=== PATIENT | female | born 1970 | race Caucasian/White ===

== ENCOUNTER 2017-11-15 21:01 | Emergency (ER) | payer OTHER, SELFPAY ==
[2017-11-15 21:03] VITALS: BP 154/99; PULSE 95; RESP 18; TEMP 36.8; O2SAT 96; BMI 48.9
--- NOTE | 2017-11-15 22:45 | RAD_ITS ---
STUDY: X-RAY - LEFT KNEE REASON FOR EXAM: Female, 47 years old. Pain TECHNIQUE: 4 view(s) of the knee. COMPARISON: None. FINDINGS: There is no evidence of fracture or dislocation. There are no significant degenerative changes. There are no radiodense foreign bodies. RAD/Knee 4 or More Views IMPRESSION: No fracture or dislocation. Electronically Signed: Ramakrishna Jones, at 23:03 EDT Tel , Service support ,
--- NOTE | 2017-11-16 00:05 | ED.VISSUMM ---
- ER Visit Summary Date of Service: 11/16/17 Chief Complaint: Knee pain History of Present Illness: The patient is a 47 F presenting for evaluation secondary knee pain. Patient states that over the course the last 2 days, she has had progressively worsening left knee pain. She denies that there is any presence of injury associated with this. She states it does feel as if there is swelling behind her knee, pain is sharp and worse with movement and ambulation and palpation. She denies any numbness or weakness. She denies any DVT or PE risk factors, she denies any chest pain or shortness of breath, she denies any exogenous hormone use. Review of systems otherwise negative. Physical Examination: Lower extremity exam shows tenderness palpation in the posterior joint line as well as the lateral joint line of the left knee. Limited range of motion secondary to pain, but normal passive range of motion. No significant joint effusion, but I do believe I was able to palpate a Ling cyst. Normal distal pulses. Normal distal sensation. Test Results: X-ray of the knee shows no radiographic abnormality. Bedside ultrasound shows a Ling's cyst and a normal popliteal vein Emergency Department Course and Treatment: Patient presented secondary to knee pain. Workup seems consistent with a Ling's cyst. Patient will be provided with an Francois wrap and NSAIDs. She will be given referral to orthopedics as needed. Disposition: Discharge Impression: 1. Ling's cyst, left knee This note was generated with [employer] dictation software. It may contain incorrect words, spelling, and punctuation that were not noted in review of the chart prior to signing ED Disposition - Plan for ED Patient: Disposition: Home or Assisted Living Chief Complaint: Lower Extremity Injury Diagnosis: Ling cyst Instructions: ED Cyst Ling Prescriptions: Naproxen [Naprosyn] 500 mg PO BID PRN #20 tab Referrals: Ramakrishna Royal MD [STAFF PHYSICIAN] - 1-2 Weeks
[2017-11-16 00:20] VITALS: RESP 18
== END 2017-11-16 00:21 | disposition home or self-care (01) ==
PROVIDERS: Emergency Provider Emergency Medicine; Family Provider Family Medicine; PCP Family Medicine
DX: M71.22 Synovial cyst of popliteal space [Baker], left knee (principal); I10 Essential (primary) hypertension; Z98.51 Tubal ligation status; Z79.899 Other long term (current) drug therapy
CPT/HCPCS: 73564; 99282

== ENCOUNTER → 2018-09-13 16:33 | Outpatient (CLI) | payer OTHER, SELFPAY ==
--- NOTE | 2018-09-13 16:55 | RAD_ITS ---
STUDY: X-RAY - LUMBAR SPINE REASON FOR EXAM: Female, 48 years old. Back pain for one year. No history of trauma. TECHNIQUE: 3 view(s) of the lumbar spine were obtained. COMPARISON: MRI lumbar spine May 06, 2017. FINDINGS: Normal lumbar lordosis. There is no substantial scoliosis. There is a normal alignment of the vertebrae. Normal vertebral bodies. Mild multilevel marginal osteophytes. Normal disc space heights. The soft tissue structures are unremarkable. RAD/Lumbar Spine 2 or 3 Views IMPRESSION: Mild degenerative changes of the lumbar spine. No fracture identified. Electronically Signed: Kirk Lopez MD at 5:09 EST , Service support ,
== END ==
PROVIDERS: Family Provider Family Medicine; PCP Family Medicine; Referring Provider Anesthesiology Pain Medicine; Visit Provider Anesthesiology Pain Medicine
DX: M54.9 Dorsalgia, unspecified (principal)
CPT/HCPCS: 72100

== ENCOUNTER 2018-10-29 18:30 | Emergency (ER) | payer OTHER, SELFPAY ==
[2018-10-29 18:31] VITALS: BP 136/87; PULSE 86; RESP 16; TEMP 36.6; O2SAT 96; BMI 41.6
[2018-10-29] MEDS: Ketorolac 30 MG/ML Syringe IM (20:16)
[2018-10-29] MEDS: morphine 8 MG/ML Syringe 6 MG IM (20:18)
--- NOTE | 2018-10-29 20:22 | ED.VIS.BACK ---
History of Present Illness Chief Complaint: Back Informant: Patient Onset: Days Context: Sudden Onset Injury: - - Patient relates no history of injury. Timing: Continuous Quality: Sharp, Aching Location: Lumbar Current Severity: Mild Maximum Severity: Severe Worsened by: improves with: Movement, Ambulation, Bending, Lifting. worse with: Night time pain Relieved by: Nothing Associated Symptoms: - - Please read narrative Narrative: Patient denies bowel or bladder dysfunction. Denies saddle paresthesia or anesthesia. She denies radicular pain. She denies foot drop. She denies weakness thigh muscles going up or down steps. She does report lumbar pain right side and centrally. Prior similar symptoms: Yes Recent Illness/Hospitalization: Yes - Recently injected by Dr. Acevedo Past Medical History - Allergies and Home Meds Allergies/Adverse Reactions: Allergies No Known Allergies Allergy (Verified 10/29/18 18:31) Primary Care Physician: Junior Nicole MD [Primary Care Provider] - Prior records reviewed: Yes Past Medical History: - - Hypertension, depression and chronic back pain Surgical History: noncontributory Lives: Spouse/ Significant Other Smoking Status: Never smoker Alcohol: None Drugs: None Review of Systems General: Denies: Chills, Fever, Malaise, Subjective, Sweats, Weight loss Cardiovascular: Denies: Chest pain, Palpitations Respiratory: Denies: Dyspnea, Cough, Dyspnea on exertion, Orthopnea, Paroxysmal nocturnal dyspnea Gastrointestinal: Reports: Abdominal pain. Denies: Nausea, Vomiting, Diarrhea Genitourinary: Denies: Dysuria, Hematuria, Frequency Musculoskeletal: Reports: Back pain. Denies: Myalgias, Arthralgias, Neck pain, Swelling, Extremity Pain Skin: Denies: Rash Neurological: Denies: Headache, Weakness, Parasthesia, Numbness Psych: Reports: Depression Allergy: Denies: Uticaria, Swelling of the mouth Physical Exam Vital Signs/Narrative: Vital Signs Temp Pulse Resp BP Pulse Ox 10/29/18 18:31 97.8 F 86 16 136/87 H 96 Inital Vital Signs reviewed: Yes General: Well nourished, Well developed, Obese Head: Normocephalic, Atraumatic Eyes: Perrl, EOMI. Negative for: Pale conjunctiva, Scleral icterus, - ENT: Moist mucous membranes, No rhinorrhea Neck: Supple, Nontender Cardiovascular: Regular rate, Regular rhythm, No murmurs, Normal S1, Normal S2 Respiratory: No distress, CTA bilaterally, Chest nontender Abdomen: Soft, Nontender, Nondistended, Normal bowel sounds, No masses Back: Normal Inspection, Negative SLR - Right, Negative SLR - Left, - - Negative crossover test. Negative for: Nontender, Spinal tenderness Extremeties: Nontender - I just finally caught up sorry Rosa, No edema, Strong Pulses, Symmetric, Asymmetric Skin: No rash Neuro: Alert, Oriented, Normal Strength, Normal Sensation, Normal DTR, Normal Gait, Normal Reflexes - Patella and ankle reflex are 2+ and symmetric. There is no clonus or Babinski sign noted. Gait was observed. There is no foot drop. She is able to walk on heels and toes. She is able to do a 1 legged squat both right and left leg. Reflexes: Right Patellar, Right Achilles, Left Patellar, Left Achilles, - - Reflexes are 2+. Negative for: Right Clonus, Right Babinski, Left Clonus, Left Babinski Psychological: Depressed, Tearful Diagnostic/Tx/Re-eval - Medical Decision Making Patient's exam is consistent with low back muscle skeletal pain. There is no evidence of radicular pain or cauda equina. Patient was medicated with Toradol and morphine. She was informed that she would not be discharged home with pain medicine since she is in a pain management program and that would violate her contract with Dr. Acevedo. She states her is able to pick her up from the emergency department. Patient's pain improved with parenteral medication. She will be discharged to home. ED Disposition - Plan for ED Patient: Disposition: Home or Assisted Living Diagnosis: Right-sided low back pain without sciatica Instructions: ED Neck Back Pain General Referrals: Junior Nicole MD [Primary Care Provider] - As Needed Additional Instructions: Keep your your appointment with Dr. Banuelos for this coming week.
[2018-10-29 21:32] VITALS: BP 150/91; PULSE 60; RESP 16; O2SAT 97
== END 2018-10-29 21:33 | disposition home or self-care (01) ==
PROVIDERS: Emergency Provider Emergency Medicine; Family Provider Family Medicine; PCP Family Medicine
DX: M54.5 Low back pain (principal); R10.9 Unspecified abdominal pain; I10 Essential (primary) hypertension; M54.9 Dorsalgia, unspecified; G89.29 Other chronic pain; E66.9 Obesity, unspecified; F32.9 Major depressive disorder, single episode, unspecified; Z79.899 Other long term (current) drug therapy
CPT/HCPCS: 96372; 99282

== ENCOUNTER 2019-07-22 15:20 | Emergency (ER) | payer OTHER, SELFPAY ==
[2019-07-22 15:21] VITALS: BP 187/106; PULSE 97; RESP 15; TEMP 36; O2SAT 98; BMI 48.7
--- NOTE | 2019-07-22 15:50 | ED.VIS.GEN ---
History of Present Illness Chief Complaint: Upper Extremity Injury Detail of Chief Complaint: Left shoulder pain Informant: Patient Onset: Days - 3 to 4 days Context: - - Other abrupt onset Current Severity: Moderate Maximum Severity: Moderate Narrative: She presents with pain to her left shoulder. It started couple days ago rather abruptly. She denies any specific injury. She states she was using a back and neck massager. She did have prior surgery on her left shoulder where she reports they removed part of her clavicle. This was approximately 7 years ago. She denies paresthesias. She is right-hand dominant. - Past Medical History (1) Hypertension Status: Chronic (2) Anxiety Status: Chronic (3) Depression Status: Chronic Past Medical History - Allergies and Home Meds Allergies/Adverse Reactions: Allergies No Known Allergies Allergy (Verified 07/22/19 15:21) Primary Care Physician: Junior Nicole MD [Primary Care Provider] - Prior records reviewed: Yes Surgical History: noncontributory Lives: With Family Smoking Status: Never smoker Review of Systems General: Denies: Chills, Fever Eyes: Denies: Visual changes - bilaterally ENT: Denies: Bilateral ear pain Cardiovascular: Denies: Chest pain Respiratory: Denies: Dyspnea, Cough Gastrointestinal: Denies: Abdominal pain Genitourinary: Denies: Dysuria Musculoskeletal: Reports: Back pain, Extremity Pain. Denies: Swelling Skin: Denies: Rash Neurological: Denies: Headache, Weakness, Parasthesia Allergy: Denies: Uticaria Physical Exam Vital Signs/Narrative: Vital Signs Temp Pulse Resp BP Pulse Ox 07/22/19 15:21 96.8 F L 97 15 187/106 H 98 Inital Vital Signs reviewed: Yes General: Well nourished, Well developed Head: Normocephalic ENT: Moist mucous membranes Neck: Supple Cardiovascular: Regular rate, Regular rhythm Respiratory: No distress, CTA bilaterally Abdomen: Soft, Nontender Extremities: - - Diffuse muscular tenderness palpation around the humeral head and over the scapula. No deformity noted. Strong hand grasp with good cap refill distally. Neurological: Alert, Oriented x3 Psychological: - - Anxious Diagnostic/Tx/Re-eval Impressions Shoulder X-Ray 07/22/19 15:55 IMPRESSION: Distal clavicular bony resorption. Differential considerations include rheumatoid arthritis or scleroderma, posttraumatic osteolysis, osteomyelitis or hyperparathyroidism. Electronically Signed: Jaime Verma MD ([place]) at 16:10 EST , Service support , 07/22/19 15:55 Shoulder min 2 Views [RAD] Stat - Medical Decision Making Patient was given [place] here for pain. On repeat evaluation she is resting comfortably. She does still have significant spasm in the trapezius muscles. She will be given restrictions for [place] and Flexeril. She will follow-up with her doctor next week. ED Disposition - Plan for ED Patient: Disposition: Home or Assisted Living Diagnosis: Shoulder sprain, Muscle spasm Instructions: Shoulder Sprain, Muscle Spasm Prescriptions: cycloBENZAPRine HCl [Flexeril] 10 mg PO TID PRN #20 tab PRN Reason: Muscle Spasm Transmission Status: Pending to [facility] Hydrocodone Bitart/Apap 5-325 [[place] 5MG-325MG] 1 tablet PO Q6H PRN PRN 3 Days #10 tablet PRN Reason: Pain Transmission Status: Sent to [facility] Referrals: Junior Nicole MD [Primary Care Provider] - 5-7 Days
[2019-07-22] MEDS: HYDROcodone Bitartrate/Apap 5/325 Tablet PO (15:52)
--- NOTE | 2019-07-22 15:55 | RAD_ITS ---
STUDY: X-RAY - LEFT SHOULDER REASON FOR EXAM: Female, 49 years old. LEFT SHOULDER PAIN TECHNIQUE: Left shoulder pain view(s) of the shoulder. COMPARISON: Chest x-ray of 01/05/2011 FINDINGS: Normal glenohumeral articulation. There has been interval osteolysis of the distal left clavicle since 2010. Normal acromion. Normal humeral head and visualized proximal humerus. The soft tissue structures are unremarkable. Normal visualized pulmonary apex. RAD/Shoulder min 2 Views IMPRESSION: Distal clavicular bony resorption. Differential considerations include rheumatoid arthritis or scleroderma, posttraumatic osteolysis, osteomyelitis or hyperparathyroidism. Electronically Signed: Jaime Verma MD ([place]) at 16:10 EST , Service support ,
[2019-07-22 18:22] VITALS: BP 155/85; PULSE 87; RESP 18; O2SAT 96
== END 2019-07-22 18:23 | disposition home or self-care (01) ==
PROVIDERS: Emergency Provider Emergency Medicine; Family Provider Family Medicine; PCP Family Medicine
DX: M62.838 Other muscle spasm (principal); S43.402A Unspecified sprain of left shoulder joint, initial encounter; X58.XXXA Exposure to other specified factors, initial encounter; Y93.9 Activity, unspecified; Y92.9 Unspecified place or not applicable; Y99.9 Unspecified external cause status; I10 Essential (primary) hypertension; F32.9 Major depressive disorder, single episode, unspecified; F41.9 Anxiety disorder, unspecified; Z79.899 Other long term (current) drug therapy
CPT/HCPCS: 73030; 99283

== ENCOUNTER 2020-04-14 16:21 | Emergency (ER) | payer OTHER, SELFPAY ==
[2020-04-14 16:22] VITALS: BP 134/84; PULSE 94; RESP 17; TEMP 36.3; O2SAT 97; BMI 50.7
--- NOTE | 2020-04-14 16:38 | ED.VISSUMM ---
- ER Visit Summary Date of Service: 04/14/20 Chief Complaint: [Swelling of the right arm ] History of Present Illness: The patient is a 50 F [presents to the emergency department with swelling of the right arm that started yesterday. Patient denies any trauma. She denies recent travel or surgery. No history of PE or DVT. She denies any chest pain or shortness of breath. She denies any fever.] Patient has history of hypertension. Physical Examination: [HEENT-PERRLA, EOMI. Cranial nerves II through XII grossly intact. TMs clear. Mucous membranes moist. No adenopathy. Cardiovascular-regular rate and rhythm without murmur or ectopy Lungs-clear to auscultation, chest wall stable without crepitus or subcu emphysema Abdomen-normoactive bowel sounds, soft, nontender, no rebound or rigidity, no peritoneal signs. Extremities-intact ?4, normal range of motion, normal pulses, atraumatic. Right arm-patient has some mild soft tissue swelling and fullness over the medial aspect of the right antecubital arm. Incidentally she is noticed to have some engorgement of the veins of the right upper arm. There is no erythema or warmth noted. She is neurovascular intact distally without significant edema distally.] Test Results: [Venous duplex not available this evening.] Emergency Department Course and Treatment: [She was given a dose of Xarelto 15 mg p.o. She will be given a prescription to have an ultrasound done tomorrow of the arm. I suspect she may have DVT versus superficial phlebitis versus possibly a lipoma.] Treatment Plan: [Patient will be given 1 dose of Xarelto and a prescription for ultrasound of the right arm tomorrow] Disposition: [Discharged home in stable condition] Impression: [Right arm swelling-rule out DVT] This note was generated with [employer] dictation software. It may contain incorrect words, spelling, and punctuation that were not noted in review of the chart prior to signing ED Disposition - Plan for ED Patient: Referrals: Junior Nicole MD [Primary Care Provider] -
--- NOTE | 2020-04-14 16:41 | ED.DEP ---
ED Disposition - Plan for ED Patient: Instructions: ED DVT Referrals: Junior Nicole MD [Primary Care Provider] - 3-5 Days
[2020-04-14] MEDS: Rivaroxaban 15 MG Tablet PO (16:52)
== END 2020-04-14 16:57 | disposition home or self-care (01) ==
LOC: ED 16:49
PROVIDERS: Emergency Provider Emergency Medicine; PCP Family Medicine
DX: M79.89 Other specified soft tissue disorders (principal); I10 Essential (primary) hypertension; Z79.899 Other long term (current) drug therapy; Z98.51 Tubal ligation status
CPT/HCPCS: 99282

== ENCOUNTER → 2020-04-15 09:33 | Outpatient (CLI) | payer OTHER, SELFPAY ==
[2020-04-14 16:22] VITALS: BMI 50.7
--- NOTE | 2020-04-15 09:35 | VDUE_ITS ---
Reason For Study: Swelling Right Proximal Right jugular vein is spontaneous, widely patent, phasic, with no intraluminal echogenicity noted. Right subclavian vein is spontaneous, widely patent, phasic, with no intraluminal echogenicity noted. Right Lower Arm Right radial vein is compressible. Right ulnar vein is compressible. Right Arm Right axillary vein is spontaneous, patent, phasic, competent, compressible and demonstrates augmentation. Right brachial vein is compressible. Right cephalic vein is compressible. Right basilic vein is compressible. Patient Safety Prelim to PCP Corey. Pt seen in ED 04/14/2020, done as next day ED. Interpretation Summary Deep veins of the right upper extremity are patent and compressible segmentally. There is no evidence of deep vein thrombosis. The superficial veins of the right upper extremity, the basilic and cephalic veins, are patent and compressible. There is no evidence of right upper extremity superficial thrombophlebitis involving the veins imaged. Ordering Physician: Lexus Aleman Referring Physician: Junior Nicole Performed By: Nadia Price RVT ?
== END ==
LOC: CVS 09:34
PROVIDERS: PCP Family Medicine; Referring Provider Emergency Medicine; Visit Provider Emergency Medicine
DX: R60.9 Edema, unspecified (principal)
CPT/HCPCS: 93971

== ENCOUNTER 2020-08-05 20:34 | Emergency (ER) | payer OTHER, SELFPAY ==
[2020-08-05 20:34] VITALS: BP 158/77; PULSE 103; RESP 16; TEMP 35; O2SAT 97; BMI 50.1
--- NOTE | 2020-08-05 20:48 | ED.VIS.GEN ---
History of Present Illness Chief Complaint: Eye Problem Informant: Patient Onset: Yesterday Current Severity: Mild Maximum Severity: Mild Narrative: Patient presents secondary left eye pain and swelling. She states she was working in her barn yesterday doing some cleaning and was rubbing her left eye quite a bit. Today she noted slight redness and swelling just under her left eye. She does not wear glasses or contacts. She denies significant vision change. She has not had discharge from her eye. - Past Medical History (1) Anxiety Status: Chronic (2) Depression Status: Chronic (3) Hypertension Status: Chronic Past Medical History - Allergies and Home Meds Allergies/Adverse Reactions: Allergies No Known Allergies Allergy (Verified 08/05/20 20:36) Primary Care Physician: Junior Nicole MD [Primary Care Provider] - Prior records reviewed: Yes Surgical History: noncontributory Smoking Status: Never smoker Review of Systems General: Denies: Chills, Fever Eyes: Reports: - - Left suborbital pain ENT: Denies: Bilateral ear pain Cardiovascular: Denies: Chest pain Respiratory: Denies: Dyspnea, Cough Gastrointestinal: Denies: Abdominal pain, Vomiting, Diarrhea Musculoskeletal: Denies: Extremity Pain Skin: Denies: Rash Hematologic: Denies: Easy bruising, Easy bleeding Allergy: Denies: Uticaria Physical Exam Vital Signs/Narrative: Vital Signs Temp Pulse Resp BP Pulse Ox 08/05/20 20:34 95 F L 103 H 16 158/77 H 97 Inital Vital Signs reviewed: Yes General: Well nourished, Well developed Head: Normocephalic Eyes: Perrl, EOMI, - - No conjunctival injection or tearing. Mild edema to the left lower lid. ENT: Moist mucous membranes Neck: Supple Cardiovascular: Regular rate, Regular rhythm Respiratory: No distress, CTA bilaterally Abdomen: Soft, Nontender Skin: Normal color Neurological: Alert, Oriented x3 Psychological: Normal affect Diagnostic/Tx/Re-eval - Medical Decision Making Visual acuity is obtained and unremarkable. Tetracaine drops were applied to the left eye. On repeat evaluation she does note some improvement. I believe she likely has a small corneal abrasion and has edema just under her eye because she was rubbing at it aggressively yesterday. She will be given gentamicin ophthalmic eyedrops and will use warm compresses. She will be referred to ophthalmology for follow-up if needed but I anticipate she will have a quick recovery from this. ED Disposition - Plan for ED Patient: Disposition: Home or Assisted Living Diagnosis: Corneal abrasion Instructions: ED Corneal Abrasion Referrals: Farzad Mccullough MD [STAFF PHYSICIAN] - As Needed Additional Instructions: Gentamicin eye drops - 2 drops to left eye every 6 hours until symptoms resolved for 24 hours.
[2020-08-05] MEDS: Tetracaine 0.5% Ophthalmic Bottle 1 DRP LEFT EYE (20:56)
[2020-08-05] MEDS: Gentamicin Sulfate 1 OPTH.BTL 2 DRP LEFT EYE (21:25)
[2020-08-05 21:29] VITALS: RESP 14
== END 2020-08-05 21:30 | disposition home or self-care (01) ==
PROVIDERS: Emergency Provider Emergency Medicine; PCP Family Medicine
DX: S05.02XA Injury of conjunctiva and corneal abrasion without foreign body, left eye, initial encounter (principal); H02.845 Edema of left lower eyelid; X58.XXXA Exposure to other specified factors, initial encounter; Y93.9 Activity, unspecified; Y92.71 Barn as the place of occurrence of the external cause; Y99.9 Unspecified external cause status; I10 Essential (primary) hypertension; F32.9 Major depressive disorder, single episode, unspecified; F41.9 Anxiety disorder, unspecified; Z79.899 Other long term (current) drug therapy
CPT/HCPCS: 99283

== ENCOUNTER → 2021-12-16 | Outpatient (CLI) | payer OTHER, SELFPAY ==
--- NOTE | 2021-12-16 12:43 | US_ITS ---
STUDY: SUPERFICIAL ULTRASOUND - LEFT GLUTEAL REGION REASON FOR EXAM: Female, 51 years old. BUTTOCK PAIN/LUMP following a fall. TECHNIQUE: A superficial ultrasound was performed with real-time and static barron-scale imaging. COMPARISON: None. FINDINGS: The abnormality corresponds to a 11.7 cm x 8.3 cm x 2.1 cm heterogeneous soft tissue density. With the patient''s history of a fall. This may represent a resolving hematoma. No increased blood flow is seen. Follow-up is recommended. US/Ext Non Vasc Limited/Soft Tiss IMPRESSION: 11.7 cm x 8.3 cm x 2.1 cm heterogeneous soft tissue density in the knee left buttock region corresponding to the palpable abnormality. With the patient''s history of a fall, this may represent a resolving hematoma. Follow-up is recommended. Electronically Signed: Marvin Villar MD at 11:15 EDT ,
== END | disposition home or self-care (01) ==
LOC: US 12:42
PROVIDERS: PCP Family Medicine; Referring Provider Registered Nurse; Visit Provider Registered Nurse
DX: M79.18 Myalgia, other site (principal)
CPT/HCPCS: 76882

== ENCOUNTER 2023-12-12 04:36 | Emergency (ER) | payer OTHER, SELFPAY ==
[2023-12-12 04:37] VITALS: BP 138/83; PULSE 109; RESP 19; TEMP 36.9; O2SAT 95; BMI 53.4
[2023-12-12] MEDS: Ondansetron ODT 4 MG Tablet PO (04:55)
[2023-12-12] MEDS: LORazepam 2 MG/ML Syringe IM (04:56)
[2023-12-12] MEDS: HYDROmorphone 1 MG/ML Syringe 2 MG IM (04:56)
[2023-12-12] MEDS: Ketorolac 30 MG/ML Syringe IM (04:56)
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
[2023-12-12 05:51] VITALS: BP 108/76; PULSE 64; RESP 15; TEMP 36.3; O2SAT 95
== END 2023-12-12 05:52 | disposition home or self-care (01) ==
PROVIDERS: Emergency Provider Emergency Medicine; PCP Family Medicine; Visit Provider Emergency Medicine
DX: S20.211A Contusion of right front wall of thorax, initial encounter (principal); M62.838 Other muscle spasm; V00.841A Fall from standing electric scooter, initial encounter; I10 Essential (primary) hypertension; F32.A Depression, unspecified; F41.9 Anxiety disorder, unspecified; Z79.899 Other long term (current) drug therapy
CPT/HCPCS: 96372; 99283

== ENCOUNTER 2024-02-21 15:04 | Emergency (ER) | payer OTHER, SELFPAY ==
[2024-02-21 15:15] VITALS: BP 171/92; PULSE 89; RESP 18; TEMP 36.4; O2SAT 99; BMI 56.1
--- NOTE | 2024-02-21 15:23 | EX.ED.DYSGE1 ---
HPI History of Present Illness Chief Complaint: Abn Labs PFSH PFS Home Medications ?Medication ?Instructions ?Recorded ?Last Taken ?Type lisinopril 20 1 ea PO DAILY 11/15/17 Unknown History mg-hydrochlorothiazide 12.5 mg tablet (Zestoretic) sertraline 100 mg tablet 100 mg PO DAILY 11/15/17 Unknown History diazepam 5 mg tablet (Valium) 5 mg PO TID PRN muscle spasm/pain 12/12/23 Unknown Rx 5 days #15 tabs oxycodone-acetaminophen 5 mg-325 1 tab PO Q6H PRN pain 5 days #20 12/12/23 Unknown Rx mg tablet (Percocet) tabs Allergy/AdvReac Type Severity Reaction Status Date / Time No Known Allergies Allergy Verified 08/05/20 20:36 Social History Smoking Status: Never smoker EXAM Physical Exam Const Vital Signs: 02/21/24 15:15 Temperature 97.5 F L Temperature Source Temporal Pulse Rate 89 Respiratory Rate 18 Blood Pressure 171/92 H Blood Pressure Mean 118 Pulse Ox 99 Oxygen Delivery Method Room Air MDM MDM MDM Narrative Medical decision making narrative: HISTORY OF PRESENT ILLNESS: 54-year-old female Presents to the ED with concern for abnormal labs. The patient denies recent surgery in the last 4 weeks or immobilization in the last 3 days, denies previous diagnosis of DVT or PE, hemoptysis, unilateral leg swelling or malignancy with treatment the last 6 months or palliative. No estrogen use noted. She does note increased dyspnea, fatigue when walking up stairs or exerting yourself this is been an ongoing issue since she had surgery 1 year ago. She also notes lower extremity swelling. Denies any calf tenderness. REVIEW OF SYSTEMS: Pertinent positives: Abnormal labs Pertinent negatives: Chest pain, shortness of breath PHYSICAL EXAM: Nursing triage notes reviewed, Vital signs reviewed Constitutional: please see mdm HENT: MMM Eyes: Pupils equal round and reactive to light, Extraocular muscles intact Neck: No stridor, no JVD, full neck ROM Lungs: Clear to auscultation, No wheezing or rales. No increased work of breathing, no conversational dyspnea, no accessory muscle use, no nasal flaring. No respiratory distress noted Heart: Regular rate and rhythm, No murmurs, No rubs and No gallops, 2+ distal pulses (radial, femoral, posterior tibial) in all extremities Abdomen: Soft, there is no tenderness, rigidity, rebound or guarding, no obvious peritoneal signs, no palpable pulsatile abdominal masses, no auscultated abdominal bruit : No CVAT Extremities: Trace edema noted bilateral lower extremities but no calf tenderness noted Neuro: No focal neurological deficits, cranial nerves II through XII intact, 5/5 strength in all extremities. Intact sensation to light touch in all extremities, 2+ reflexes bilateral patella tendons. Normal gait. No ataxia. Skin: No rash or lesions noted MEDICAL DECISION MAKING: Chief Complaint: Abnormal labs External records reviewed: Reviewed [employer], no labs noted. Reviewed Clinisync: CBC showed no leukocytosis, no significant anemia, no thrombocytopenia. D-dimer was elevated at 810. X-ray left knee was obtained and showed no acute osseous abnormality, noted medial compartment osteoarthritis. CMP without evidence of acute kidney injury, significant electrolyte abnormality, anion gap, no evidence hepatobiliary pathology. Factors affecting care: hypertension, knee osteoarthritis Social determinants of health: none History obtained from others: Patient's son Consults: none MDM Narrative: Patient was initially hypertensive with blood pressure 171/92 otherwise afebrile and nontoxic-appearing. Exam with no obvious amount of VTE however given elevated D-dimer I pursued a broad workup. I considered the following differential diagnosis: PE, DVT ALL IMAGES (IF OBTAINED) HAVE BEEN PERSONALLY REVIEWED AND INTERPRETED BY MYSELF. CBC with no leukocytosis, noted mild anemia, no thrombocytopenia Bilateral duplex ultrasounds are negative for acute DVT EKG with normal sinus rhythm, left axis deviation, no STEMI, no signs of right heart strain BMP without evidence of significant electrolyte abnormalities, no anion gap, no acute kidney injury. High-sensitivity troponin is negative, no evidence of myocardial ischemia BNP within the limits suggestive of no increased ventricular stretch or heart failure CT of the chest shows no evidence of PE. Although the patient elevated D-dimer there is no sign of DVT or PE. Patient appropriate discharge home with close outpatient follow-up. The patient and/or family, caregivers express understanding. The patient and/or family, caregivers agrees with the plan. Shared decision making: I will have a discussion with the patient and or visitors regarding risk/benefits of further testing or admission. They will be made aware of of the risk/benefits inherent in this decision they will be given the opportunity to voice understanding. Total critical care time today provided was at least 0 minutes. This excludes separately billable procedures. Critical care time (if documented) is secondary to the patient having high probability of clinically significant/life threatening deterioration in the patient's condition which required my urgent intervention. Impression: 1. Elevated D-dimer 2. Dyspnea on exertion 3. Leg swelling Dispo: This note was generated with [employer] dictation software. It may contain incorrect words, spelling, and punctuation that were not noted in review of the chart prior to signing. Lab Data Labs: Laboratory Results - last 24 hr 02/21/24 15:49 WBC 10.0 RBC 4.18 L Hgb 11.3 L Hct 36.4 L MCV 87.1 MCH 27.0 MCHC 31.0 L RDW Std Deviation 56.1 H RDW Coeff of Oneal 17.7 H Plt Count 317 MPV 8.7 Immature Gran % (Auto) 1.400 H Neut % (Auto) 66.4 Lymph % (Auto) 23.2 [place] % (Auto) 5.5 Eos % (Auto) 3.1 Baso % (Auto) 0.4 Absolute Neuts (auto) 6.7 Absolute Lymphs (auto) 2.33 Nucleated RBC % 0 Sodium 141 Potassium 4.0 Chloride 106 Carbon Dioxide 31.0 Anion Gap 4 L BUN 12 Creatinine 0.71 Estim Creat Clear Calc 134.84 Est GFR (MDRD) Af Amer 111 Est GFR (MDRD) Non-Af 92 BUN/Creatinine Ratio 16.9 Glucose 86 Calcium 8.7 Troponin I High Sens 8 B-Natriuretic Peptide 16.1 Radiography Diagnostic Testing: Clinical Impression(s) from Imaging Studies Venous Doppler Study 02/21/24 15:36 Interpretation Summary Deep veins of the lower extremities are bilaterally patent and compressible segmentally. There is no evidence of deep vein thrombosis on either side. Valvular competence appears intact within the proximal deep venous systems bilaterally. The great saphenous veins appear bilaterally patent and compressible segmentally. Views of the deep calf veins were limited due to the patient's body habitus. Ordering Physician: Dewayne Bowen Referring Physician: Junior Nicole Performed By: Nadia Price RVT Chest CTA 02/21/24 16:35 IMPRESSION: Mild atelectasis within the dependent portion of both upper and lower lobes.. No acute cardiopulmonary pathology. No evidence for pulmonary embolus Electronically Signed: Chris Estrella MD at 17:01 EDT , Discharge Plan Triage Chief Complaint: Abn Labs ED Provider: Dewayne Bowen Dx/Rx/DC Orders Prescriptions: No Action lisinopril-hydrochlorothiazide [Zestoretic] 1 EACH tablet 1 ea PO DAILY sertraline 100 MG tablet 100 mg PO DAILY Patient Comments: Take 1 tablet by mouth once daily. diazepam [Valium] 5 mg tablet 5 mg PO TID PRN (Reason: muscle spasm/pain) 5 Days Qty: 15 0RF oxycodone-acetaminophen [Percocet] 5-325 mg tablet 1 tab PO Q6H PRN (Reason: pain) 5 Days Qty: 20 0RF Primary Care Provider: Junior Nicole Referrals: Junior Nicole MD [Primary Care Provider] - Print Language: Citizen Of [place]
--- NOTE | 2024-02-21 15:36 | VDLE_ITS ---
Reason For Study: Elevated D-dimer RIGHT LEFT GSV is normal. GSV is normal. CFV is compressible, spontaneous, phasic, CFV is compressible, spontaneous, phasic, competent and demonstrates normal competent, and demonstrates normal augmentation. augmentation. FV is compressible, spontaneous, phasic, FV is compressible, spontaneous, phasic, competent and demonstrates normal competent and demonstrates normal augmentation. augmentation. POP V is compressible, spontaneous, phasic, POP V is compressible, spontaneous, phasic, competent and demonstrates normal competent and demonstrates normal augmentation. augmentation. T/P Trunk is compressible. T/P Trunk is compressible. PTV is compressible. PTV is compressible. RT PerV is compressible. LT PerV is compressible. Procedure This is a venous duplex using B-mode, color flow and spectral Doppler. Exam performed portable in ED. Bilateral calf veins viewed only at distal calf. Technically difficult and limited study due to patient body habitus. A preliminary report was called and/or faxed to Dr. Bowen. VL/Venous Duplex US - Carlos Extrem Interpretation Summary Deep veins of the lower extremities are bilaterally patent and compressible seg mentally. There is no evidence of deep vein thrombosis on either side. Valvular competence appears in tact within the proximal deep venous systems bilaterally. The great saphenous veins appear bila terally patent and compressible segmentally. Views of the deep calf veins were limited due to the patient's body habitus. Ordering Physician: Dewayne Bowen Referring Physician: Junior Nicole Performed By: Nadia Price RVT
[2024-02-21 16:00] LABS: Absolute Lymphocyte Count 2.33 X10^3/uL (0.83-4.51); Absolute Neutrophil Count 6.7 X10^3/uL (2.0-7.7); Basophil# 0.04 X10^3/uL; Basophil% 0.4 % (0-1); Eosinophil# 0.31 X10^3/uL; Eosinophils% 3.1 % (0-5); Hematocrit 36.4 % (37-47); Hemoglobin 11.3 g/dL (12.0-15.0); Lymphocyte # 2.33 X10^3/ul (0.83-4.51); Lymphocyte % 23.2 % (19-41); Mean Corpuscular Volume 87.1 fL (81-99); Mean Platelet Vol. 8.7 fl (6.2-12.0); Monocyte# 0.55 X10^3/uL; Monocyte% 5.5 % (0-10); NRBC Flagged by Analyzer 0 % (0-5); Neutrophil # 6.67 X10^3/uL (2.7-7.7); Neutrophil % 66.4 % (47-70); Platelet Count 317 K/mm3 (150-450); RBC Distribution Width CV 17.7 % (11.6-14.6); RBC Distribution Width SD 56.1 fl (35.1-43.9); Red Blood Count 4.18 M/mm3 (4.2-5.4)
[2024-02-21 16:25] LABS: Anion Gap 4 (5-15); BUN 12 mg/dL (7-18); BUN/Creat Ratio 16.9 RATIO (10-20); Calcium,Total 8.7 mg/dL (8.5-10.1); Chloride 106 mmol/L (98-107); Creatinine, Serum 0.71 mg/dL (0.55-1.02); EST Glomerular Filtration Rate 92 mL/min (>60); Est Glom Filt Rate - Afr Amer 111 mL/min (>60); Estimated Creatinine Clearance 134.84 ml/min; Glucose 86 mg/dL (74-106); Sodium Level 141 mmol/L (136-145); Troponin-I HS 8 pg/mL (3.0-54.0)
[2024-02-21 16:28] LABS: BNP,B-Type NATRIURETIC PEPTIDE 16.1 pg/mL (0-100)
--- NOTE | 2024-02-21 16:35 | CT_ITS ---
STUDY: CTA CHEST REASON FOR EXAM: Female, 54 years old. elevated d-dimer RADIATION DOSAGE (If Supplied By Facility): CTDIvol = ( 12.66 ) mGy, DLP = ( 527.59 ) mGycm TECHNIQUE: The examination was performed with the intravenous administration of IV 100mL [id number]-[id number]. Post-processing of the angiographic images was performed, with multiplanar reformation and 3D reconstruction. Individualized dose optimization techniques were used for this CT. COMPARISON: None. FINDINGS: Normal enhancement of the main pulmonary artery and right and left pulmonary arteries. Normal enhancement of the bilateral peripheral pulmonary arteries. There is no demonstrated pulmonary embolism. Normal thoracic aorta and visualized great vessels. There is no demonstrated aortic dissection. Normal heart and pericardium. Normal mediastinum. Normal hilar regions. Normal visualized trachea and bronchi. The lungs are well expanded. Mild atelectasis within the dependent portion of the upper and lower lobes.. Normal pleura. Dorsal spine demonstrates mild degenerative change Normal osseous structures. Normal visualized upper abdomen. CT/CTA Chest W/WO Contrast IMPRESSION: Mild atelectasis within the dependent portion of both upper and lower lobes.. No acute cardiopulmonary pathology. No evidence for pulmonary embolus Electronically Signed: Chris Estrella MD at 17:01 EDT ,
[2024-02-21 17:05] VITALS: BP 147/98; PULSE 73
[2024-02-21 17:33] VITALS: BP 147/98; PULSE 78; RESP 16; TEMP 36.2; O2SAT 100
== END 2024-02-21 17:34 | disposition home or self-care (01) ==
PROVIDERS: Emergency Provider Emergency Medicine; PCP Family Medicine; Visit Provider Emergency Medicine
DX: R79.89 Other specified abnormal findings of blood chemistry (principal); I10 Essential (primary) hypertension; R06.00 Dyspnea, unspecified; M79.89 Other specified soft tissue disorders; R53.83 Other fatigue; M17.10 Unilateral primary osteoarthritis, unspecified knee; Z79.899 Other long term (current) drug therapy
CPT/HCPCS: 71275; 80048; 83880; 84484; 85025; 93005; 93970; 99284; Q9967; A4216